=== PATIENT | male | born 1995 | race Caucasian/White ===

== ENCOUNTER 2017-03-08 18:38 | Inpatient (IN) | payer BC ==
[~2017-03-08] VITALS: Ht 182.9 cm; Wt 88.9 kg
--- NOTE | 2017-03-08 18:53 | NUR ---
WANG CATH INSERTED, 40 ML OUTPUT INITIALLY.
[2017-03-08 18:55] LABS: BASOPHILS % (AUTO) 0.6 % (0.0-2.0); EOSINOPHILS % (AUTO) 0.5 % (0.0-6.0); HEMATOCRIT 39 % (39-51); HEMOGLOBIN 13.3 g/dL (13.5-17.5); LYMPHOCYTES # (AUTO) 3.5 /CMM (0.8-4.8); LYMPHOCYTES % (AUTO) 46.5 % (20.0-44.0); MEAN CORPUSCULAR HEMOGLOBIN 28 PG (26.0-33.0); MEAN CORPUSCULAR HGB CONC 34 g/dl (31.0-36.0); MEAN CORPUSCULAR VOLUME 83 fL (80-96); MONOCYTES # (AUTO) 0.5 /CMM (0.1-1.30); MONOCYTES % (AUTO) 6.7 % (2.0-12.0); NEUTROPHILS # (AUTO) 3.4 /CMM (1.8-8.9); NEUTROPHILS % (AUTO) 45.7 % (43.0-81.0); PLATELET COUNT (AUTO) 332 /CMM (150-450); RDW COEFFICIENT OF VARIATION 13.2 (11.5-15.0); RED BLOOD CELL COUNT(AUTO) 4.72 MIL/uL (4.5-6.0); WHITE BLOOD COUNT (AUTO) 7.4 K/uL (4.3-11.0)
[2017-03-08] MEDS ORDERED: IV NS 0.9% 1,000 ML BAG IV ONE (19:00)
[2017-03-08 19:02] LABS: APPEARANCE,URINE Clear (CLEAR); BILIRUBIN,URINE Negative (NEGATIVE); BLOOD, URINE Negative Ery/uL (NEGATIVE); COLOR,URINE Yellow (YELLOW); KETONES,URINE Negative (NEGATIVE); LEUKOCYTE ESTERASE ,URINE Negative (NEGATIVE); NITRITE, URINE Negative (NEGATIVE); PROTEIN,URINE Negative (NEGATIVE); UGLUCOSE Negative (NEGATIVE); UROBILINOGEN,URINE 0.2 EU/dL (0.2)
[2017-03-08 19:05] LABS: CALCIUM, SERUM 7.9 mg/dL (8.5-10.1); CARBON DIOXIDE 26 mmol/L (21-32); CHLORIDE 106 mmol/L (98-107); CREATININE 0.6 mg/dL (0.6-1.3); GLUCOSE 105 mg/dL (74-106); POTASSIUM 3.3 mmol/L (3.5-5.1); SODIUM SERUM 140 mmol/L (136-145); UREA NITROGEN, BLOOD 4 mg/dL (7-18)
[2017-03-08 19:09] LABS: INR 1.05 (0.87-1.13); PROTHROMBIN TIME 10.9 SECS (9.5-12.7); SERUM AMMONIA 39 umol/L (11-32)
--- NOTE | 2017-03-08 19:10 | NUR ---
ASSUME PT CARE. PT WAS BIBRA TO ER BED 09. PER REPORT, FOUND SITTING DOWN UNRESPONSIVE, EMPTY BOTTLES OF ALCOHOL BY PT SIDE. GOWNED. ON MONITOR. VSS AT THIS TIME WILL MONITOR CLOSELY.
[2017-03-08 19:15] LABS: ALANINE AMINOTRANSFERASE 21 U/L (12-78); ALCOHOL, BLOOD 404 mg/dL (0-0); ALKALINE PHOSPHATASE 56 U/L (46-116); ASPARTATE AMINOTRANSFERASE 15 U/L (15-37); BILIRUBIN,DIRECT 0.1 mg/dL (0.0-0.2); BILIRUBIN,TOTAL 0.2 mg/dL (0.2-1.0); TOTAL PROTEIN, SERUM 7.7 g/dL (6.4-8.2)
--- NOTE | 2017-03-08 19:15 | NUR ---
DR DOOLEY AT BEDSIDE FOR EVAL.
[2017-03-08 19:17] LABS: TROPONIN I < 0.017 ng/mL (0.00-0.056)
[2017-03-08] MEDS ORDERED: IV SET PRIMARY PUMP SET 1 EA INFUS.SET MC ONE (19:20)
[2017-03-08] MEDS ORDERED: IV NS 0.9% 1,000 ML ONE (19:20)
[2017-03-08] MEDS ORDERED: IV LR 1000 ML 1,000 ML ONE (19:20)
[2017-03-08 19:21] LABS: THYROID STIMULATING HORMONE 0.656 uIU/mL (0.358-3.74)
[2017-03-08] MEDS ORDERED: Magnesium 1GM/D5W 100ML PREMIX 200 ML IV ONE (19:21)
[2017-03-08] MEDS ORDERED: Magnesium 1 GM/2 ML VIAL IV ONE (19:30)
[2017-03-08] MEDS ORDERED: IV LR 1000 ML 1,000 ML IV ONE (19:30)
--- NOTE | 2017-03-08 20:09 | NUR ---
PAGED ISIDRO LOWERY NP SUPERVISOR COAL HANDLING FOR EPIC
[2017-03-08] MEDS ORDERED: NALOXONE HCL 0.4 MG/ML AMPUL ONE (20:48)
[2017-03-08] MEDS ORDERED: NALOXONE HCL 0.4 MG/ML AMPUL IV ONE (21:00)
--- NOTE | 2017-03-08 21:00 | NUR ---
PT APPEARS TO BE MORE AWARE POST NARCAN. NOTED TO BE MOVING BLE. STABLE VITALS. WILL CONT TO MONITOR.
--- NOTE | 2017-03-08 23:01 | NUR ---
PT SLEEPPING. ON MONITOR W/ STABLE VITALS. NOTED TO MOVE BLE. NOW OPENS EYES TO VOICE STIMULI. WILL CONTINUE TO MONITOR
--- NOTE | 2017-03-08 23:21 | NUR ---
REPORT TO CHARGE NURSE NORMA FOR FRANCISCO.
[2017-03-09] MEDS ORDERED: IV SET PRIMARY 1 EA INFUS.SET MC ONE (01:47)
[2017-03-09] MEDS ORDERED: IV NS 0.9% 1,000 ML ONE ×2 (01:47→06:02)
[2017-03-09] MEDS ORDERED: IV NS 0.9% 1,000 ML BAG IV ONE (02:00)
--- NOTE | 2017-03-09 02:15 | NUR ---
pt sleeping in gurney. pt easily arousable. will cont to monitor pt.
[2017-03-09] MEDS ORDERED: LORAZEPAM INJ 2 MG/ML VIAL ONE (04:41)
--- NOTE | 2017-03-09 04:45 | NUR ---
Pt noted having seizure activity. Dr beltran noted.
[2017-03-09] MEDS ORDERED: IV NS 0.9% 1,000 ML IV PRN (04:56)
[2017-03-09] MEDS ORDERED: MAGNESIUM HYDROXIDE 30 ML UDC PO PRN (05:00)
[2017-03-09] MEDS ORDERED: ACETAMINOPHEN 325 MG TABLET PO PRN (05:00)
[2017-03-09] MEDS ORDERED: MAG HYDROX/AL HYDROX/SIMETH 30 ML UDC PO PRN (05:00)
[2017-03-09] MEDS ORDERED: LORAZEPAM INJ 2 MG/ML VIAL IV ONE (05:00)
[2017-03-09] MEDS ORDERED: ONDANSETRON HCL/PF 4 MG/2 ML VIAL IVP PRN (05:00)
--- NOTE | 2017-03-09 05:10 | NUR ---
REPORT RECEIVED FROM ER NURSE NORMA
--- NOTE | 2017-03-09 05:13 | NUR ---
Report given to Lucy ACOSTA for continuation of care.
[2017-03-09 05:30] VITALS: BP 127/57
--- NOTE | 2017-03-09 05:30 | NUR ---
FRUIT STUFFER INITIAL NOTES RECEIVED PATIENT VIA PAKO. AWAKE A/OX3, LETHARGIC. DENIES PAIN OR DISCOMFORT. WHEN ASKED WHAT BROUGHT HIM TO THE HOSPITAL PATIENT STATED HE DRANK TOO MUCH AND TAKES HIS PRESCRIPTION ATIVAN WITH ALCOHOL TO GET A BETTER HIGH. PATIENT STATES HE IS HOMELESS, AND USES HEROIN RARELY, SMOKES A PACK A DAY. RESPIRATIONS EVEN AND UNLABORED, ON 4LPMO2 VIA NC. PER REPORT PATIENT HAD ONE MINUTE EPISODE OF SEIZURE IN ER, ONE DOSE OF ATIVAN GIVEN, AND NARCAN. ON TELE MONITOR SINUS TACH 111. WITH LFA 18G PATENT AND INTACT. F/C PATENT AND INTACT. ORIENTED PATIENT TO ROOM AND CALL LIGHT SYSTEM. PATIENT VERBALIZED UNDERSTANDING. ASKED PATIENT IF HE HAS FAMILY, PATIENT STATED HIS MOM IS IN A SAFE HOUSE. WHEN HIS MOM WENT TO PRISON HE COULD AFFORD PAYING RENT AND HAS BEEN HOMELESS SINCE. SIDE RAILS UP AND LOCKED. SEIZURE PRECAUTIONS OBSERVED. BED KEPT AT LOWEST POSITION. CALL LIGHT KEPT WITHIN EASY REACH. WILL CONTINUE TO MONITOR.
[2017-03-09] MEDS ORDERED: IV SET PRIMARY PUMP SET 1 EA INFUS.SET MC ONE (06:15)
--- NOTE | 2017-03-09 07:46 | NUR ---
COMMUNICATIONS EDITOR CLOSING NOTES NO SIGNIFICANT CHANGES. NPO AT THIS TIME. NO SEIZURE ACTIVITY NOTED. SEIZURE PRECAUTIONS OBSERVED. NO RESPIRATORY DISTRESS NOTED. IVF RUNNING. SIDE RAILS UP AND LOCKED. BED KEPT AT LOWEST POSITION. CALL LIGHT KEPT WITHIN EASY REACH. CONTINUITY OF CARE ENDORSED TO AM NURSE.
--- NOTE | 2017-03-09 07:52 | NUR ---
RN INITIAL NOTES PT IS IN BED RESTING COMFORTABLY, A/O x4, ON NC 4LPM O2, ON TELE MONITOR SINUS 96. NPO, IV ON LFA IV FLUIDS 100ML/HR. WANG CATH IS PATENT AND DRAINING YELLOW URINE. WILL CONTINUE TO MONITOR FOR SEIZURE AND ANY ABNORMAL LABS, SIDE RAILS UP, BED LOCKED AND IN LOWEST POSITION, CALL LIGHT WITHIN REACH.
[2017-03-09 07:53] LABS: CREATININE 0.7 mg/dL (0.6-1.3); MAGNESIUM 1.9 mg/dL (1.8-2.4); POTASSIUM 3.7 mmol/L (3.5-5.1)
[2017-03-09 08:00] VITALS: BP 116/51
[2017-03-09] MEDS ORDERED: SECONDARY IV SET 1 EA INFUS.SET MC ONE (09:02)
[2017-03-09] MEDS: LORAZEPAM INJ 2 MG/ML VIAL IV PRN ×4 (09:10→21:59)
[2017-03-09] MEDS: Thiamine 100 MG in IV D5W 50 ML IV SCH (09:17)
[2017-03-09] MEDS: ENOXAPARIN SODIUM 40 MG/0.4 ML DISP.SYRIN SQ SCH (09:19)
[2017-03-09] MEDS: FAMOTIDINE/PF INJ 20 MG/2 ML VIAL IV SCH (09:39)
--- NOTE | 2017-03-09 09:47 | NUR ---
ROLANDO PALMER TO HAVE LIQUIDS, AND HAVE A REGULAR DIET. ORDER CARRIED OUT.
[2017-03-09 12:00] VITALS: BP 146/84
--- NOTE | 2017-03-09 15:12 | NUR ---
Social service consult for substance withdrawal. Pt. is a 21 year old male who was admitted to [facility] for substance withdrawal. JOSE A is familiar with pt. from previous admissions. Pt. is in the [facility] program at [facility] located at [address] [place] [address]. Pt. has a history of drinking until he blacks out. Pt. is alert and oriented x2. Pt. states he is homeless and is not sure regarding senior care placement but is open to homeless resources. When JOSE A asked pt. if he is open to attending a drug and alcohol treatment program, pt stated "yes" SW reminded pt. that the last time he was sent to [facility], he went awol. Pt. stated, " their program is stupid". SW to follow up with pt. once he is more alert to discuss discharge planning.
[2017-03-09 16:00] VITALS: BP 157/84
--- NOTE | 2017-03-09 19:38 | NUR ---
RN CLOSING NOTES NO SIGNIFICANT CHANGES DURING AM SHIFT, ON REGULAR DIET, WANG CATH IS DISCONTINUED. ASSISTED PT WITH ADLS AND ALL MEDS GIVEN AND TOLERATED IT WELL. ENDORSED TO PM NURSE FOR CONTINUATION OF CARE. CALL LIGHT IS WITHIN REACH
[2017-03-09] MEDS: IV NS 0.9% 1,000 ML IV PRN (19:55)
[2017-03-09 20:00] VITALS: BP 148/82
--- NOTE | 2017-03-09 20:38 | NUR ---
RN INITIAL NOTES RECEIVED PT IS IN BED RESTING COMFORTABLY, A/O x4, ON NC 4LPM O2, ON TELE MONITOR SINUS 96. ON REGULAR DIET, IV ON LFA IV FLUIDS 100ML/HR. PT ON BRP, SAFETY MEASURES EXPLAINED, REGARDING RISK OF SEIZURE WHILE BRP, REQUESTED TO CALL FOR HELP. WILL CONTINUE TO MONITOR FOR SEIZURE AND ANY ABNORMAL LABS, SIDE RAILS UP, BED LOCKED AND IN LOWEST POSITION, CALL LIGHT WITHIN REACH.
[2017-03-10] VITALS (7 sets, daily range): BP systolic 125–162; BP diastolic 67–92
[2017-03-10] MEDS: LORAZEPAM INJ 2 MG/ML VIAL IV PRN ×5 (02:33→19:31)
[2017-03-10] MEDS: IV NS 0.9% 1,000 ML IV PRN ×3 (06:22→19:31)
--- NOTE | 2017-03-10 06:29 | NUR ---
RN INITIAL NOTES ENDORSED PT IS IN BED RESTING COMFORTABLY, A/O x4, ON NC 4LPM O2, ON TELE MONITOR SINUS 96. ON REGULAR DIET, IV ON LFA IV FLUIDS 100ML/HR. PT ON BRP, SAFETY MEASURES EXPLAINED, REGARDING RISK OF SEIZURE WHILE BRP, PT FREQUENTLY ASKING FOR IV PUSH ATIVAN AFTER 2 HRS OF GIVING IT, REQUESTED TO CALL FOR HELP. WILL CONTINUE TO MONITOR FOR SEIZURE AND ANY ABNORMAL LABS, SIDE RAILS UP, BED LOCKED AND IN LOWEST POSITION, CALL LIGHT WITHIN REACH.
--- NOTE | 2017-03-10 07:00 | NUR ---
RN INITIAL NOTES PT IS IN BED RESTING COMFORTABLY, A/O x4, NO RESPIRATORY DISTRESS NOTED, ON TELE MONITOR SINUS 89. IV SITE IS FLUSHED AND PATENT ON LFA IV FLUIDS 100ML/HR. ON BEDREST, BRP, STANDBY ASSIST, WILL CONTINUE TO MONITOR FOR SEIZURE AND ANY ABNORMAL LABS, SIDE RAILS UP, BED LOCKED AND IN LOWEST POSITION, CALL LIGHT WITHIN REACH.
[2017-03-10 07:26] LABS: BASOPHILS % (AUTO) 0.5 % (0.0-2.0); EOSINOPHILS # (AUTO) 0.1 /CMM (0.0-0.7); EOSINOPHILS % (AUTO) 2.3 % (0.0-6.0); HEMATOCRIT 36 % (39-51); HEMOGLOBIN 12.2 g/dL (13.5-17.5); LYMPHOCYTES # (AUTO) 2.5 /CMM (0.8-4.8); LYMPHOCYTES % (AUTO) 41.1 % (20.0-44.0); MEAN CORPUSCULAR HEMOGLOBIN 29 PG (26.0-33.0); MEAN CORPUSCULAR HGB CONC 34 g/dl (31.0-36.0); MEAN CORPUSCULAR VOLUME 84 fL (80-96); MONOCYTES # (AUTO) 0.6 /CMM (0.1-1.30); MONOCYTES % (AUTO) 10.4 % (2.0-12.0); NEUTROPHILS # (AUTO) 2.7 /CMM (1.8-8.9); NEUTROPHILS % (AUTO) 45.7 % (43.0-81.0); PLATELET COUNT (AUTO) 225 /CMM (150-450); RDW COEFFICIENT OF VARIATION 13.9 (11.5-15.0); RED BLOOD CELL COUNT(AUTO) 4.28 MIL/uL (4.5-6.0)
[2017-03-10] MEDS: FAMOTIDINE/PF INJ 20 MG/2 ML VIAL IV SCH (09:18)
[2017-03-10] MEDS: Thiamine 100 MG in IV D5W 50 ML IV SCH (09:19)
[2017-03-10] MEDS: ENOXAPARIN SODIUM 40 MG/0.4 ML DISP.SYRIN SQ SCH (09:21)
--- NOTE | 2017-03-10 18:48 | NUR ---
RN CLOSING NOTES NO SIGNIFICANT CHANGE DURING AM SHIFT, ON 02 VIA NASAL CANNULA 2LPM, TOLERATING WELL. SINUS ON TELE MONITOR. PER MD MAYERS- CONTINUE WITH IV FLUIDS, GIVE ATIVAN NEEDED, FOR SEIZURE PRECAUTION. PT KEPT BEDREST WITH BRP AND URINAL - COLLECTED 2800 ML URINE. ALL MEDS GIVEN ORDERED AND TOLERATED IT WELL, MOTIVATED PT OF SELF CARE. WILL ENDORSE TO PM NURSE FOR CONTINUATION OF CARE. CALL LIGHT WITHIN REACH.
[2017-03-11] VITALS: BP 133/77
[2017-03-11 05:10] VITALS: BP 140/84
--- NOTE | 2017-03-11 07:10 | NUR ---
LEAD SOFTWARE TESTER NOTES RECEIVED PATIENT IN BED, AWAKE. A/O X4, ON ROOM AIR, TOLERATING WELL. BREATHING EVEN AND NON LABORED. NO SOB. IV NS INFUSING AT 150ML/HR, NO C/O PAIN. CALL LIGHT WITHIN REACH. WILL CONT TO MONITOR.
[2017-03-11] MEDS: IV NS 0.9% 1,000 ML IV PRN ×2 (07:52→16:48)
[2017-03-11] MEDS: LORAZEPAM INJ 2 MG/ML VIAL IV PRN ×4 (07:53→22:01)
--- NOTE | 2017-03-11 07:57 | NUR ---
PATIENT APPEARS ANXIOUS, DISCONNECTED HIS IV LINE AND WALK IN THE HALLWAY, PATIENT STATED HE FEELS HIS BECOMING TO HAVE SEIZURES ANY MINUTE NOW. ASSISTED PATIENT BACK TO BED, MADE COMFORTABLE. NO SOB, SATING 100% IN RA. INSTRUCTED TO USE CALL LIGHT IF HE NEEDS ASSISTANCE, VERBALIZED UNDERSTANDING. GIVEN ATIVAN 2MG IV PRN FOR ANXIETY, WILL REASSESS.
[2017-03-11 08:00] VITALS: BP 111/56
[2017-03-11] MEDS: FAMOTIDINE/PF INJ 20 MG/2 ML VIAL IV SCH (08:40)
[2017-03-11] MEDS: ENOXAPARIN SODIUM 40 MG/0.4 ML DISP.SYRIN SQ SCH (08:41)
--- NOTE | 2017-03-11 09:00 | NUR ---
PATIENT IN BED, AWAKE. APPEARS CALM AND RELAX. NO C/O ANXIETY, ATIVAN IV PRN EFFECTIVE. 1:1 SITTER AT THE BEDSIDE.
[2017-03-11] MEDS ORDERED: SECONDARY IV SET 1 EA INFUS.SET MC ONE (09:20)
[2017-03-11] MEDS: Thiamine 100 MG in IV D5W 50 ML IV SCH (09:21)
--- NOTE | 2017-03-11 10:33 | NUR ---
PATIENT TO BE DISCHARGED HOME TODAY ORDERED. CALLED SPOKE TO WILY CARCAMO-MOTHER, INFORMED.
--- NOTE | 2017-03-11 11:58 | NUR ---
PATIENT IS HOMELESS AND PER WILY-MOTHER SHE CAN NOT BRING HIS SON HOME. CHARGE NURSE IS AWARE, SPOKE TO ELLE AND BAMBI REGARDING SENIOR CARE, LEFT VOICE MAIL TO RAFIA-FOUNDRY TECHNICIAN (EXT [phone]) WILL NOTIFY DR. MAYERS.
[2017-03-11 12:00] VITALS: BP 137/74
--- NOTE | 2017-03-11 12:41 | NUR ---
PATIENT WILL BE SEEN BY DERMATOLOGY PHYSICIAN-RAFIA TOMORROW 03/12/17, INFORMED DR. MAYERS.
[2017-03-11 16:00] VITALS: BP 157/95
--- NOTE | 2017-03-11 18:07 | NUR ---
PATIENT APPEARS RESTLESS AND ANXIOUS, PER PATIENT SHE'S HAVING TREMORS IN HIS HANDS, NO SEIZURES EPISODE NOTED. NO SOB. GIVEN ATIVAN 2MG IV PRN FOR ANXIETY. WILL REASSESS.
--- NOTE | 2017-03-11 18:33 | NUR ---
ASSURANCE SPECIALIST CLOSING NOTES PATIENT IN BED, NOT IN DISTRESS. APPEARS COMFORTABLE, WITH EPISODE OF ANXIETY DURING THE SHIFT, NO SEIZURES NOTED. ON 1:1 SITTER AT THE BEDSIDE. CALM AND RELAXED AT THIS TIME. GOOD APPETITE, ATE 100% OF HIS MEALS. NO SOB. CHEFS TO SEE PATIENT TOMORROW 03/12/17 FOR PLACEMENT-RESIDENTIAL. WILL ENDORSE TO VERIFYING MACHINE OPERATOR RN FOR CONTINUITY OF CARE.
--- NOTE | 2017-03-11 19:20 | NUR ---
RUG HOOKER HAND INITIAL NOTES PT RECEIVED IN NO ACUTE DISTRESS A/O X3. ABLE TO MAKE NEEDS KNOWN. CURRENTLY ON RA WITH 96% 02 SATURATION. PT IS ON TELE WITH SR 116 WHILE AMBULATING. HAS A RFA 22 G THAT IS CLEAN DRY AND PATENT/FLUSHED. UPON ARRIVAL TO ROOM HE ASKED FOR ATIVAN FOR TREMORS AND WILL ADMINISTER WHEN ABLE TO. COMFORT/SAFETY MEASURES ENSURED. WILL CONTINUE TO MONITOR FOR CHANGES DURING THE SHIFT.
[2017-03-11 20:00] VITALS: BP 147/87
[2017-03-12] VITALS: BP 147/92
[2017-03-12] MEDS: IV NS 0.9% 1,000 ML IV PRN (01:26)
[2017-03-12] MEDS: LORAZEPAM INJ 2 MG/ML VIAL IV PRN ×3 (02:02→09:50)
[2017-03-12 04:00] VITALS: BP 121/69
--- NOTE | 2017-03-12 05:33 | NUR ---
RN NOTE PT STATED THAT HE FELT NAUSEA. GAVE ZOFRAN VIA IVP. WILL CONTINUE TO MONITOR FOR NAUSEA
--- NOTE | 2017-03-12 06:22 | NUR ---
RN NOTE PT STATED HE WAS ANXIOUS DURING THE SHIFT. ATIVAN GIVEN AT [phone], [phone], [phone] DURING MY SHIFT. WILL CONTINUE TO MONITOR.
--- NOTE | 2017-03-12 06:28 | NUR ---
OYSTER PLANTER CLOSING NOTE PT REMAINED IN NO ACUTE DISTRESS DURING THE SHIFT. ALL VITALS WNL. HAD EPISODE OF ANXIETY/TREMENS X3, NAUSEA X1 WHICH WERE CORRECTED THROUGH IV MEDICATIONS AND TOLERATED WELL. SITTER AT BEDSIDE DURING THE SHIFT. PT IS CALM COMFORTABLE AND SAFE IN BED. WILL ENDORSE CARE TO AM NURSE.
[2017-03-12 08:00] VITALS: BP 136/60
[2017-03-12] MEDS ORDERED: THIAMINE HCL 100 MG TABLET PO SCH (09:00)
[2017-03-12] MEDS: FAMOTIDINE/PF INJ 20 MG/2 ML VIAL IV SCH (09:04)
[2017-03-12] MEDS: ENOXAPARIN SODIUM 40 MG/0.4 ML DISP.SYRIN SQ SCH (09:08)
[2017-03-12] MEDS ORDERED: NICOTINE PATCH (14MG) 14 MG PATCH.TD24 TD SCH (11:00)
--- NOTE | 2017-03-12 11:51 | NUR ---
cone worker met with patient at bedside and asked if he wanted intermediate placement. Patient stated that his mom was going to pick him up. cone worker spoke with patient's mom Maryann ([phone]) who confirmed that she would pick and shovel worker the patient in two hours. cone worker notified the patient that his mother would pick him up in two hours but that if she did not, he would have to go to a intermediate. Patient stated, "You can't send me anywhere else, I will be suicidal if you send me somewhere else." patient at the moment was agreeable with the discharge plan. cone worker contacted Ginny from [facility] ([phone]) who stated they had a top bunk available and patient could be sent there at 3pm for an intake for emergency placement. cone worker provided patient with resources to homeless shelters, showers and hot meals, mental health referrals, and substance abuse referrals. Patient signed the homeless waiver form. cone worker informed patient she was available if needed. Addendum: 03/12/17 at 1222 by THOR NARANJO [facility] ([phone]) [address] [place] [id number].
--- NOTE | 2017-03-12 12:15 | NUR ---
RN NOTE PT DISCHARGED TO HOME IN STABLE CONDITION, PICKED UP BY MOTHER, PT AMBULATORY, BELONGINGS GIVEN TO PT, BELONGINGS LIST SIGNED, EXIT CARE DONE, DISCHARGE INSTRUCTIONS PROVIDED, PRESCRIPTION GIVEN TO PT, AND FAXED TO [facility] IN [facility], [place], IV REMOVED, ID BAND REMOVED.
== END 2017-03-12 14:54 | disposition home or self-care (01) | DRG 773 ==
LOC: EDBD 18:40 → ER 18:40 → TELE-TD 03-09 05:22 → TELE1 03-09 06:20 → MEDSG1 03-12 12:02
PROVIDERS: ADMIT Nurse Practitioner Acute Care; ATTEND Nurse Practitioner Acute Care
DX: F10.231 Alcohol dependence with withdrawal delirium (principal); F11.929 Opioid use, unspecified with intoxication, unspecified; R56.9 Unspecified convulsions; F17.210 Nicotine dependence, cigarettes, uncomplicated; Z59.0 Homelessness; Z81.3 Family history of other psychoactive substance abuse and dependence; F17.200 Nicotine dependence, unspecified, uncomplicated; B19.20 Unspecified viral hepatitis C without hepatic coma; F32.9 Major depressive disorder, single episode, unspecified; F41.9 Anxiety disorder, unspecified; F13.10 Sedative, hypnotic or anxiolytic abuse, uncomplicated
CPT/HCPCS: 36415; 70450-TC; 71010-TC; 80048-TC; 80076-TC; 80305; 81000-TC; 82140-TC; 83605-TC; 83735-TC; 84100-TC; 84443-TC; 84484-TC; 85025-TC; 85730-TC; 87040-TC; 87081-TC; 94799-TC; G0480; J1650; J2060; J2310; J2405; J3411; J3475; J3490; J7030; J7060; J7120; Z7610